=== PATIENT | male | born 1975 | race Caucasian/White ===

== ENCOUNTER 2020-06-22 17:37 | Emergency (ER) | payer OTHER, SELFPAY ==
--- NOTE | ~2020-06-22 | XR_ITS ---
EXAMINATION: XR ankle LT min 3V DATE: 06/22/2020 18:23 INDICATION: Left ankle pain and swelling TECHNIQUE: Anteroposterior, lateral, mortise, and additional oblique view of the ankle were obtained. COMPARISON: None. FINDINGS: Bone alignment is normal. There is no fracture. Ankle soft tissue swelling is noted. The an kle mortise is intact. IMPRESSION: 1. Ankle soft tissue swelling without acute osseous abnormality. Reviewed, dictated and finalized at location A. INSPECTOR
--- NOTE | ~2020-06-22 | XR_ITS ---
EXAMINATION: XR foot LT min 3V DATE: 06/22/2020 18:24 INDICATION: Left foot pain TECHNIQUE: Dorsoplantar, lateral, and 2 oblique views of the left foot were obtained. COMPARISON: None. FINDINGS: Bone alignment is normal. There is no fracture. There is lateral soft tissue swelling of an kle. The joint spaces are maintained. IMPRESSION: 1. Soft tissue swelling without acute osseous abnormality. Reviewed, dictated and finalized at location A. WORKERS
[2020-06-22 17:50] VITALS: BP 138/82; PULSE 85; RESP 16; TEMP 36.7; O2SAT 98
--- NOTE | 2020-06-22 18:00 | ED.LOWEXIN ---
HPI - Extremity Injury (Lower) General Chief Complaint: Extremity Injury, Lower Stated Complaint: Exremity Injury, Lower Time Seen by Provider: 06/22/20 18:00 Source: patient Mode of arrival: ambulatory Limitations: no limitations History of Present Illness HPI Narrative: Chris Meade is a 44 yo male with a PMH of opiate addiction (currently on Suboxone) who fell off a ladder on Tuesday dropped about 10 feet left ankle is currently swollen. He has been icing his ankle over the weekend; rates pain on ankle is 8 out of 10 Related Data Allergies Allergy/AdvReac Type Severity Reaction Status Date / Time codeine Allergy Unknown Unknown Verified 06/22/20 17:58 Review of Systems Review of Systems: Narrative: CONSTITUTIONAL: Denies fever, chills, sweats. EYES: Denies visual changes, redness, discharge. ENT: Denies rhinorrhea, congestion, sore throat, otalgia. CARDIOVASCULAR: Denies chest pain, palpitations, edema. RESPIRATORY: Denies dyspnea, wheezing, cough GASTROINTESTINAL: Denies abdominal pain, nausea, vomiting, diarrhea. GENITOURINARY: Denies dysuria, hematuria, abnormal discharge SKIN: Denies rash or itching. NEUROLOGIC: Denies numbness, or focal weakness. PSYCHIATRIC: Denies anxiety or depression. Left ankle pain and swelling PMFSH Past Medical History Medical History Opiate addiction Family History Family History Grandparent Family history of cardiovascular disease Family history of coronary artery disease Diabetes mellitus Other Family history of attention deficit hyperactivity disorder (ADHD) Social History Social History Smoking status: Current every day smoker Second hand tobacco smoke exposure: No Alcohol intake: never Substance use type: painkillers Comments At time of signature, I agree with nursing past medical, surgical, social and family history. There is no relevant family history pertinent to the presenting complaint. Exam Narrative: Exam Narrative: GENERAL: This is a well-nourished, well-developed patient, in mild distress. HEAD: normocephalic, atraumatic. EYES: PERRL. Sclera clear/white. Vision is grossly intact. EARS: External ears normal, auditory canals clear and without drainage, TMs normal without perforation. Hearing grossly intact. NOSE: External nose normal without nasal discharge, nares without redness, no rhinorrhea. THROAT: Mucous membranes moist, posterior pharynx NECK: Neck supple, non-tender CARDIOVASCULAR: Regular rate and rhythm without murmurs, gallops, or rubs. RESPIRATORY: Clear to auscultation. Breath sounds equal bilaterally. No wheezes, rales, or rhonchi. GASTROINTESTINAL: Abdomen soft, non-tender, SKIN: warm, intact with no suspicious lesions or rash, good texture and turgor. NEURO: awake, alert, and oriented to person, place and time. There were no obvious focal neurologic abnormalities. Steady gait EXTREMITIES: L ankle edema, lateral, above Achilles tendon, able to wiggle toes, 2+ pedal pulse, induration above heel BACK: Nontender without deformity Course Course Emergency Course: Patient fell off a 10 foot ladder on Tuesday has iced and elevated L ankle since then and still has pain and inability to put pressure on foot X-ray left ankle and left foot-left tissue swelling present but bone alignment normal ankle mortise is intact Given muscle relaxant and ankle Mu wrapped and patient placed on crutches; RICE to joint Follow-up with orthopedist if no improvement the next few days Vital Signs Vital signs: Vital Signs Temperature 98.1 F 06/22/20 17:50 Pulse Rate 85 06/22/20 17:50 Respiratory Rate 16 06/22/20 17:50 Blood Pressure 138/82 06/22/20 17:50 Pulse Oximetry 98 06/22/20 17:50 Temperature 98.1 F 06/22/20 17:50 Pulse Rate 85 06/22/20 17:50 Respiratory Rate 1
== END 2020-06-22 19:14 | disposition home or self-care (01) ==
PROVIDERS: Emergency Provider Nurse Practitioner
DX: S93.402A Sprain of unspecified ligament of left ankle, initial encounter (principal); S96.912A Strain of unspecified muscle and tendon at ankle and foot level, left foot, initial encounter; W11.XXXA Fall on and from ladder, initial encounter; F17.200 Nicotine dependence, unspecified, uncomplicated
CPT/HCPCS: 73610; 73630; 99213; G0463

== ENCOUNTER 2021-03-19 16:18 | Emergency (ER) | payer OTHER, SELFPAY ==
[2021-03-19 16:24] VITALS: BP 147/87; PULSE 80; RESP 16; TEMP 37.3; O2SAT 100
[2021-03-19 16:41] VITALS: BP 147/87; PULSE 80; RESP 16; TEMP 37.3; O2SAT 100
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
== END 2021-03-19 17:04 | disposition home or self-care (01) ==
PROVIDERS: Emergency Provider Nurse Practitioner
DX: F11.23 Opioid dependence with withdrawal (principal); F17.200 Nicotine dependence, unspecified, uncomplicated
CPT/HCPCS: 99213; G0463

== ENCOUNTER 2021-03-24 15:50 | Emergency (ER) | payer OTHER, SELFPAY ==
[2021-03-24 16:02] VITALS: BP 114/76; PULSE 102; RESP 16; TEMP 36.7; O2SAT 99
--- NOTE | 2021-03-24 16:43 | ED.GENADULT ---
HPI - General Adult General Chief complaint: Unspecified Stated complaint: needs refill of meds till he can get to dr Time Seen by Provider: 03/24/21 16:45 Source: patient, RN notes reviewed and old records reviewed Mode of arrival: ambulatory Limitations: no limitations History of Present Illness HPI narrative: 45-year-old male presents to [facility] with complaints of needing Gabapentin medication refilled till he can get to his doctors appointment. Patient states that he is off of Suboxone now for 10 days and needs refill on the Gabapentin till he can see his new doctor on April 04. Patient reports that he takes the Gabapentin for chronic neck, right arm pain and back pain. Patient had prior history of opiate dependency but has been doing well was on Suboxone for 3 years but can longer afford it and has weaned himself off with last dose 10 days ago, denies any relapse. complaint: needs medication refill Onset (ago): day(s) (1) Related Data Home Medications Medication Instructions Recorded Confirmed gabapentin 600 mg PO TID 03/24/21 03/24/21 Allergies Allergy/AdvReac Type Severity Reaction Status Date / Time codeine Allergy Unknown Unknown Verified 03/24/21 16:10 Review of Systems Review of Systems: CONSTITUTIONAL: Denies fever, chills, or sweats. EYES: Denies visual changes, redness, or discharge. ENT: Denies rhinorrhea, congestion, sore throat, or otalgia. CARDIOVASCULAR: Denies chest pain, palpitations, or edema. RESPIRATORY: Denies cough or dyspnea. GASTROINTESTINAL: Denies abdominal pain, nausea, vomiting, or diarrhea. GENITOURINARY: Denies dysuria or hematuria. SKIN: Denies rash or itching. MUSCULOSKELETAL: Chronic lower back pain and neck pain and right arm pain. joint pain, or myalgia. NEUROLOGIC: Denies headache, numbness, or weakness. PSYCHIATRIC: Denies anxiety or depression. All systems reviewed & are unremarkable except as noted in HPI and below PMFSH Past Medical History Medical History (Updated 03/28/21 @ 16:10 by Avis Mallory NP) Lumbar back sprain and fracture 2009 Opiate addiction Surgical History Surgical History (Updated 03/28/21 @ 16:12 by Avis Mallory NP) H/O wrist surgery right History of knee surgery right knee History of shoulder surgery right Family History Family History Grandparent Family history of cardiovascular disease Family history of coronary artery disease Diabetes mellitus Other Family history of attention deficit hyperactivity disorder (ADHD) Social History Social History Smoking status: Current every day smoker Second hand tobacco smoke exposure: No Alcohol intake: never Substance use type: painkillers Comments At time of signature, agree with nursing past medical, surgical, social and family history. There is no relevant family history pertinent to the presenting complaint Exam Narrative: GENERAL: Well-appearing, well-nourished, and in no acute distress. HEAD: Normocephalic, atraumatic. EYES: PERRLA and EOMI. ENT: Nares clear, no rhinorrhea or epistaxis. Mucous membranes moist. NECK: Supple.no lymphadenopathy CHEST: Clear to auscultation. No respiratory distress.SAO2 99% on room air HEART: Regular rate and rhythm. No murmur heard. Normal peripheral pulses. ABDOMEN: Soft, nontender, nondistended, normal active bowel sounds. EXTREMITIES: Normal range of motion. No edema history of chronic back and neck pain and right arm pain. SKIN: Warm, dry, no rash. NEURO: No focal deficits. Alert and oriented x3. Course Vital Signs Vital signs: Vital Signs Temperature 36.7 C 03/24/21 16:02 Pulse Rate 102 H 03/24/21 16:02 Respiratory Rate 16 03/24/21 16:02 Blood Pressure 114/76 03/24/21 16:02 Pulse Oximetry 99 03/24/21 16:02 Temperature 36.7 C 03/24/21 16:02 Pulse Rate 102 H 03/24/21 16:02 Re
== END 2021-03-24 17:05 | disposition home or self-care (01) ==
PROVIDERS: Emergency Provider Registered Nurse
DX: Z76.0 Encounter for issue of repeat prescription (principal); F17.200 Nicotine dependence, unspecified, uncomplicated
CPT/HCPCS: 99211; G0463

== ENCOUNTER 2021-06-26 12:48 | Emergency (ER) | payer OTHER, SELFPAY ==
--- NOTE | 2021-06-26 12:52 | ED.ANXIETY ---
HPI - Anxiety General Chief Complaint: Unspecified Stated Complaint: nerves and anxiety flare up Time Seen by Provider: 06/26/21 12:53 Source: patient and RN notes reviewed History of Present Illness HPI narrative: Patient is a 45-year-old male who presents the urgent care with complaints of increased anxiety and nerve pain. Patient states that he typically takes gabapentin 600 mg 3 times a day however he has been out of his medications. It was noted in patient's pharmacy that he failed gabapentin in March for 45 tablets. Patient states that he has had increased anxiety since he has been out considering he had to bury his a week ago . Patient also reports of chronic rotator cuff pain and right wrist pain due to injuries. Patient does appear anxious otherwise no acute distress noted. No other acute complaints. Patient aware of the plan of care Some parts of this dictation were generated by voice recognition software and may contain typographical and/or grammatical inaccuracies. Related Data Allergies Allergy/AdvReac Type Severity Reaction Status Date / Time codeine Allergy Unknown Unknown Verified 06/26/21 12:56 Review of Systems Review of Systems: CONSTITUTIONAL: Denies fever, chills, or sweats. EYES: Denies visual changes, redness, or discharge. ENT: Denies rhinorrhea, congestion, sore throat, or otalgia. CARDIOVASCULAR: Denies chest pain, palpitations, or edema. RESPIRATORY: Denies cough or dyspnea. GASTROINTESTINAL: Denies abdominal pain, nausea, vomiting, or diarrhea. GENITOURINARY: Denies dysuria or hematuria. SKIN: Denies rash or itching. MUSCULOSKELETAL: Denies back pain, joint pain, or myalgia. NEUROLOGIC: Denies headache, numbness, or weakness. PSYCHIATRIC: Reports of anxiety All other systems reviewed are negative, except as documented in HPI. [facility] Past Medical History Medical History (Updated 06/26/21 @ 13:06 by MARIANO Cronin) Lumbar back sprain and fracture 2009 Opiate addiction Surgical History Surgical History (Updated 03/28/21 @ 16:12 by Avis Mallory NP) H/O wrist surgery right History of knee surgery right knee History of shoulder surgery right Family History Family History Grandparent Family history of cardiovascular disease Family history of coronary artery disease Diabetes mellitus Other Family history of attention deficit hyperactivity disorder (ADHD) Social History Social History Smoking status: Current every day smoker Second hand tobacco smoke exposure: No Alcohol intake: never Substance use type: painkillers Comments At the time of my signature, I reviewed and agree with the nursing past medical, surgical, social, and family history. There is no relevant family history pertinent to the patient complaint. Exam Narrative: GENERAL: This is a well-nourished, well-developed patient, in no apparent distress. HEAD: normocephalic, atraumatic. EYES: PERRL. Sclera clear/white. Vision is grossly intact. EARS: External ears normal NOSE: External nose normal with no obvious nasal discharge, nares without redness, no rhinorrhea. THROAT: Mucous membranes moist, posterior pharynx clear. NECK: Neck supple, CARDIOVASCULAR: Regular rate and rhythm without murmurs, gallops, or rubs. RESPIRATORY: Clear to auscultation. Breath sounds equal bilaterally. No wheezes, rales, or rhonchi. SKIN: warm, intact with no suspicious lesions or rash, good texture and turgor. NEURO: awake, alert, and oriented to person, place and time. There were no obvious focal neurologic abnormalities. EXTREMITIES: No clubbing, cyanosis, or edema. Course Vital Signs Vital signs: Vital Signs Temperature 98.6 F 06/26/21 12:53 Pulse Rate 112 H 06/26/21 12:53 Respiratory Rate 16 06/26/21 12:53 Blood Pressure 141/89 H 06/26/21 12:53 Pulse Oximetry 100 06/26/21 1
[2021-06-26 12:53] VITALS: BP 141/89; PULSE 112; RESP 16; TEMP 37; O2SAT 100
== END 2021-06-26 13:09 | disposition home or self-care (01) ==
PROVIDERS: Emergency Provider Nurse Practitioner Family
DX: Z76.0 Encounter for issue of repeat prescription (principal); F17.200 Nicotine dependence, unspecified, uncomplicated
CPT/HCPCS: 99211; G0463

== ENCOUNTER 2023-02-17 09:41 | Emergency (ER) | payer OTHER, SELFPAY ==
[2023-02-17 09:52] VITALS: BP 137/92; PULSE 88; RESP 16; TEMP 36.7; O2SAT 99
--- NOTE | 2023-02-17 10:01 | ED.DENTAL ---
HPI - Dental/Oral General Chief complaint: Dental/Oral Stated complaint: Toothache Time Seen by Provider: 02/17/23 10:01 Source: patient, RN notes reviewed and old records reviewed Mode of arrival: ambulatory Limitations: no limitations History of Present Illness HPI Narrative: 47-year-old male presents to the [facility] with complaints of dental pain and facial swelling that started yesterday. Very poor dentition in general. No erythema to the face MD Complaint: tooth pain Related Data Allergies Allergy/AdvReac Type Severity Reaction Status Date / Time codeine Allergy Unknown Unknown Verified 06/26/21 12:56 Review of Systems Review of Systems: All systems reviewed & are unremarkable except as noted in HPI and below Constitutional: Constitutional: Reports no additional constitutional complaints Eyes: Eyes: Reports no additional eye complaints ENT: Reports as per HPI, Reports dental pain, Denies hoarseness and Denies lip swelling Cardiovascular: Cardiovascular: Reports no additional cardiovascular complaints, Denies chest pain and Denies dyspnea Respiratory: Respiratory: Reports no additional respiratory complaints, Denies chest congestion, Denies cough and Denies dyspnea Gastrointestinal: Gastrointestinal: Reports no additional gastrointestinal complaints, Denies abdominal pain, Denies nausea and Denies vomiting Musculoskeletal: Musculoskeletal: Reports no additional musculoskeletal complaints Integumentary/Breasts: Skin/Breast: Reports system reviewed and no additional complaints, except as docu Neurologic: Reports system reviewed and no additional complaints, except as documented Psychiatric: Psychiatric: Reports no additional psychiatric complaints Allergic/Immunologic: Allergic/Immunologic: Reports no additional allergic/immunologic complaints [facility] Past Medical History Medical History Lumbar back sprain and fracture 2009 Opiate addiction Surgical History Surgical History H/O wrist surgery right History of knee surgery right knee History of shoulder surgery right Family History Family History Grandparent Family history of cardiovascular disease Family history of coronary artery disease Diabetes mellitus Other Family history of attention deficit hyperactivity disorder (ADHD) Social History Social History Smoking status: Current every day smoker Second hand tobacco smoke exposure: No Alcohol intake: never Substance use type: painkillers Comments At the time of my signature, I reviewed and agree with the nursing past medical, surgical, social, and family history. There is no relevant family history pertinent to the patient complaint. Exam Const: General: cooperative, healthy appearing, comfortable, no acute distress, well developed, alert and well nourished Nutritional Appearance: well nourished Orientation/consciousness: patient oriented x3 Limitations: no limitations HENMT: Head: normal to inspection Ears: hearing grossly normal bilaterally, external ears normal, TM's normal bilaterally and EAC's normal Face/Nose/Sinus: Normal external nose present, Normal nares present, Normal nasal mucous membranes and turbinates present and normal facial exam Face and sinus: normal facial exam Mouth: Yes Normal oral and palatal mucosa present, Yes lip normal and Yes moist mucous membranes Teeth and gingiva: abnormal tooth and associated gingiva (Left upper and lower gingiva erythema, swelling as well as multiple molars ), caries, gingiva abnormal and poor dentition Throat: posterior oropharynx normal and uvula midline Eyes: General: appearance normal, both eyes and all related structures Alignment and Position: alignment normal Periorbital: periorbital findings normal Pup
== END 2023-02-17 10:17 | disposition home or self-care (01) ==
PROVIDERS: Emergency Provider Nurse Practitioner
DX: K04.7 Periapical abscess without sinus (principal); F17.200 Nicotine dependence, unspecified, uncomplicated
CPT/HCPCS: 99213; G0463

== ENCOUNTER 2024-02-02 14:50 | Emergency (ER) | payer OTHER, SELFPAY ==
[2024-02-02 15:02] VITALS: BP 152/98; PULSE 100; RESP 20; TEMP 36.3; O2SAT 99
--- NOTE | 2024-02-02 15:37 | ED.SKABFB ---
HPI - Skin/Abscess/Foreign Bdy General Chief complaint: Skin/Abscess/Foreign Body Stated complaint: Suture Removed History of Present Illness HPI narrative: patient is a 48-year-old male, presents to [facility] for staple removal from the left scalp, following an injury he sustained 3 weeks ago with subsequent staple placement. He reports the wound has been well healed but he was unable to make it in to have his robbi removed before today secondary to scheduling conflicts. He denies any additional complaints today. Related Data Allergies Allergy/AdvReac Type Severity Reaction Status Date / Time codeine Allergy Unknown Unknown Verified 06/26/21 12:56 Review of Systems Integumentary/Breasts: Comments: Refer HPI [facility] Past Medical History Medical History Lumbar back sprain and fracture 2009 Opiate addiction Surgical History Surgical History H/O wrist surgery right History of knee surgery right knee History of shoulder surgery right Family History Family History Grandparent Family history of cardiovascular disease Family history of coronary artery disease Diabetes mellitus Other Family history of attention deficit hyperactivity disorder (ADHD) Social History Social History Smoking status: Current every day smoker Second hand tobacco smoke exposure: No Alcohol intake: never Substance use type: painkillers Exam Const: General: cooperative, healthy appearing and comfortable Nutritional Appearance: average body habitus Orientation/consciousness: oriented to person Limitations: no limitations HENMT: Head: other ( patient has 5 [place] placed to the left occipital scalp. Well-healed. ) Mouth: Yes Normal oral and palatal mucosa present Chest: Chest palpation & inspection: normal inspection of the chest and normal palpation of entire chest wall Resp: Effort & Inspection: normal respiratory effort Auscultation: clear to auscultation bilaterally Cardio: Rate: regular rate Rhythm: regular rhythm Heart sounds: S1 normal heart sound present and S2 normal heart sound present Skin: General skin exam: normal color Lesions: no lesions Rashes: no rashes Neuro: General: oriented to person, oriented to place, oriented to time and patient oriented x3 Cranial nerves: Yes CN's II-XII intact bilaterally Course Course Emergency Course: 5 [place] removed, patient tolerated well Level of Care: Express Care Visit ([id number]) Vital Signs Vital signs: Vital Signs Temperature 36.3 C L 02/02/24 15:02 Pulse Rate 100 02/02/24 15:02 Respiratory Rate 20 02/02/24 15:02 Blood Pressure 152/98 H 02/02/24 15:02 Pulse Oximetry 99 02/02/24 15:02 Oxygen Delivery Room Air 02/02/24 15:02 Temperature 36.3 C L 02/02/24 15:02 Pulse Rate 100 02/02/24 15:02 Respiratory Rate 20 02/02/24 15:02 Blood Pressure 152/98 H 02/02/24 15:02 Pulse Oximetry 99 02/02/24 15:02 Oxygen Delivery Room Air 02/02/24 15:02 Procedures Other Procedure Procedure 1: Other Procedure: staple removal complete, 5 robbi removed intact, no bleeding or drainage following MDM - Skin/Abscess/Foreign Bdy Differential Diagnosis Differential diagnosis: Likely other ( staple removal) Discharge Plan Discharge Clinical Impression: Encounter for staple removal Patient Disposition: Home, Self-Care Condition: Stable Instructions: Antibiotic Form Additional Instructions: keep wound clean and dry, it appears well healed however the puncture sites were robbi removed sometimes ooze slightly. Follow-up with your primary care provider with any further concerns Follow-up/Referrals: PHYSICIAN,BEAD SUPERVISOR [Primary Care Provider] - Time of Disposition: 15:43
== END 2024-02-02 15:50 | disposition home or self-care (01) ==
PROVIDERS: Emergency Provider Nurse Practitioner Family
DX: S01.01XD Laceration without foreign body of scalp, subsequent encounter (principal); X58.XXXD Exposure to other specified factors, subsequent encounter; F17.200 Nicotine dependence, unspecified, uncomplicated
CPT/HCPCS: 99211; G0463

== ENCOUNTER 2024-03-08 14:24 | Emergency (ER) | payer OTHER, SELFPAY ==
[2024-03-08 14:40] VITALS: BP 144/81; PULSE 76; RESP 20; TEMP 36.7; O2SAT 100
--- NOTE | 2024-03-08 15:42 | ED.GENADULT ---
HPI - General Adult General Chief complaint: Skin/Abscess/Foreign Body Stated complaint: stung by wasps/swelling Time Seen by Provider: 03/08/24 15:45 Source: patient, RN notes reviewed and old records reviewed Mode of arrival: ambulatory Limitations: no limitations History of Present Illness HPI narrative: 48-year-old male presents to the [facility] with multiple scabs to his wrists and forearms. Reports that it is all over his body. Has been sleeping in a shed. Areas are scabbed over, no signs of cellulitis. Most consistent with scabies or mites States has been going on for several days Related Data Home Medications Medication Instructions Recorded Confirmed buprenorphine 8 mg-naloxone 2 mg 1 film sublingual TID 03/08/24 03/08/24 sublingual film Allergies Allergy/AdvReac Type Severity Reaction Status Date / Time codeine Allergy Unknown Unknown Verified 03/08/24 14:54 Review of Systems Review of Systems: All systems reviewed & are unremarkable except as noted in HPI and below Constitutional: Constitutional: Reports no additional constitutional complaints Eyes: Eyes: Reports no additional eye complaints ENT: Reports system reviewed and no additional complaints, except as documented Cardiovascular: Cardiovascular: Reports no additional cardiovascular complaints, Denies chest pain and Denies dyspnea Respiratory: Respiratory: Reports no additional respiratory complaints, Denies chest congestion, Denies cough and Denies dyspnea Gastrointestinal: Gastrointestinal: Reports no additional gastrointestinal complaints, Denies abdominal pain, Denies nausea and Denies vomiting Musculoskeletal: Musculoskeletal: Reports no additional musculoskeletal complaints Integumentary/Breasts: Skin/Breast: Reports as per HPI Neurologic: Reports system reviewed and no additional complaints, except as documented Psychiatric: Psychiatric: Reports no additional psychiatric complaints Allergic/Immunologic: Allergic/Immunologic: Reports no additional allergic/immunologic complaints [facility] Past Medical History Medical History Lumbar back sprain and fracture 2009 Opiate addiction Surgical History Surgical History H/O wrist surgery right History of knee surgery right knee History of shoulder surgery right Family History Family History Grandparent Family history of cardiovascular disease Family history of coronary artery disease Diabetes mellitus Other Family history of attention deficit hyperactivity disorder (ADHD) Social History Social History Smoking status: Current every day smoker Second hand tobacco smoke exposure: No Alcohol intake: never Substance use type: painkillers Comments At the time of my signature, I reviewed and agree with the nursing past medical, surgical, social, and family history. There is no relevant family history pertinent to the patient complaint. Exam Const: General: cooperative, healthy appearing, comfortable, no acute distress, well developed, alert and well nourished Nutritional Appearance: well nourished Orientation/consciousness: patient oriented x3 Limitations: no limitations HENMT: Head: normal to inspection Ears: hearing grossly normal bilaterally and external ears normal Face/Nose/Sinus: Normal external nose present, Normal nares present, Normal nasal mucous membranes and turbinates present, normal facial exam and face symmetric Face and sinus: normal facial exam and face symmetric Eyes: General: appearance normal, both eyes and all related structures Alignment and Position: alignment normal Periorbital: periorbital findings normal Neck: Neck: normal visual inspection, full ROM, no lymphadenopathy and no meningeal signs Chest: Chest palpation
== END 2024-03-08 15:50 | disposition home or self-care (01) ==
PROVIDERS: Emergency Provider Nurse Practitioner
DX: B88.9 Infestation, unspecified (principal); F17.200 Nicotine dependence, unspecified, uncomplicated
CPT/HCPCS: 99213; G0463

== ENCOUNTER 2025-01-02 11:29 | Emergency (ER) | payer OTHER, SELFPAY ==
[2025-01-02 11:33] VITALS: BP 118/68; PULSE 86; RESP 18; TEMP 36.8; O2SAT 100
--- NOTE | 2025-01-02 11:38 | ED.SKABFB ---
HPI - Skin/Abscess/Foreign Bdy General Chief complaint: Skin/Abscess/Foreign Body Stated complaint: poison Kary Time Seen by Provider: 01/02/25 11:38 Source: patient Mode of arrival: ambulatory Limitations: no limitations History of Present Illness HPI narrative: 49 yo M presents with poison kary rash for 1 wk. Reports spread all over his entire body. hx of similar allergic reaction. All systems reviewed and negative except as noted above. Related Data Allergies Allergy/AdvReac Type Severity Reaction Status Date / Time codeine Allergy Unknown Unknown Verified 01/02/25 11:38 Review of Systems Review of Systems: CONSTITUTIONAL: Denies fever, chills, or sweats. EYES: Denies visual changes, redness, or discharge. ENT: Denies rhinorrhea, congestion, sore throat, or otalgia. CARDIOVASCULAR: Denies chest pain, palpitations, or edema. RESPIRATORY: Denies cough or dyspnea. GASTROINTESTINAL: Denies abdominal pain, nausea, vomiting, or diarrhea. GENITOURINARY: Denies dysuria or hematuria. SKIN: reports poison kary rash with itching MUSCULOSKELETAL: Denies back pain, joint pain, or myalgia. NEUROLOGIC: Denies headache, numbness, or weakness. PSYCHIATRIC: Denies anxiety or depression. All other systems reviewed are negative, except as documented in HPI. [facility] Past Medical History Medical History Lumbar back sprain and fracture 2009 Opiate addiction Surgical History Surgical History H/O wrist surgery right History of knee surgery right knee History of shoulder surgery right Family History Family History Grandparent Family history of cardiovascular disease Family history of coronary artery disease Diabetes mellitus Other Family history of attention deficit hyperactivity disorder (ADHD) Social History Social History Smoking status: Current every day smoker Second hand tobacco smoke exposure: No Alcohol intake: never Substance use type: painkillers Comments At time of signature, agree with nursing past medical, surgical, social and family history. There is no relevant family history pertinent to the presenting complaint. Exam Narrative: GENERAL: This is a well-nourished, well-developed patient, in no apparent distress. HEAD: normocephalic, atraumatic. EYES: PERRL. Sclera clear/white. Vision is grossly intact. EARS: External ears normal NOSE: External nose normal NECK: Neck supple, non-tender without lymphadenopathy, masses or thyromegaly. CARDIOVASCULAR: Regular rate and rhythm without murmurs, gallops, or rubs. RESPIRATORY: Clear to auscultation. Breath sounds equal bilaterally. No wheezes, rales, or rhonchi. SKIN: warm, Dry, intact , good texture and turgor. erythematous vesicular scabbed poison kary rash from head to toe. erythema and swelling with warmth to bilateral forearms concerning for cellulitis. Also erythematous pustule lesions to back of neck concerning for infection. NEURO: awake, alert, and oriented to person, place and time. There were no obvious focal neurologic abnormalities. EXTREMITIES: No joint tenderness, effusion, or edema noted. Course Course Level of Care: [facility] Visit Vital Signs Vital signs: Vital Signs Temperature 36.8 C 01/02/25 11:33 Pulse Rate 86 01/02/25 11:33 Respiratory Rate 18 01/02/25 11:33 Blood Pressure 118/68 01/02/25 11:33 Pulse Oximetry 100 01/02/25 11:33 Oxygen Delivery Room Air 01/02/25 11:33 Temperature 36.8 C 01/02/25 11:33 Pulse Rate 86 01/02/25 11:33 Respiratory Rate 18 01/02/25 11:33 Blood Pressure 118/68 01/02/25 11:33 Pulse Oximetry 100 01/02/25 11:33 Oxygen Delivery Room Air 01/02/25 11:33 reviewed MDM - Skin/Abscess/Foreign Bdy MDM Narrative Medical decision making narrative: pt given solumedrol IM at [facility] due to severity of rash. Will treat with prednisone taper and cephalexin. Pt alert, nontoxic. Differential Diagnosis Differential diagnosis: Likely abscess of skin or subcutaneous tissue, urticaria, cellulitis, impetigo and contact dermatitis Discharge Plan Discharge Clinical Impression: Dermatitis due to plants, including poison kary, sumac, and oak, Cellulitis Patient Disposition: Home Condition: Stable Instructions: Antibiotic Form Additional Instructions: start oral prednisone tomorrow morning. Take hydroxyzine as prescribed To treat itching. This medication may cause drowsiness. Do not take while driving. Apply steroid cream sparingly to affected area 2 to 3 times a day. Follow-up with your doctor if symptoms are not improving. Patient Language: Georgian Prescriptions: New prednisone 10 mg tablet See Rx Instructions .ROUTE .COMPLEX Qty: 42 0RF Rx Instructions: Take 6 tablets for 2 days Take 5 tablets for 2 days Take 4 tablets for 2 days Take 3 tablets for 2 days Take 2 tablets for 2 days Take 1 tablet for 2 days triamcinolone acetonide 0.1 % cream 1 applic topical BID Qty: 30 0RF cephalexin 500 mg capsule 500 mg PO QID 10 Days Qty: 40 0RF hydroxyzine HCl 25 mg tablet 25 mg PO Q6-8H PRN (Reason: itching) Qty: 30 0RF Follow-up/Referrals: PHYSICIAN,SHELL [employer] MACHINE OPERATOR [Primary Care Provider] - Time of Disposition: 12:08
[2025-01-02] MEDS: methylPREDNISolone SOD SUCC 125 MG VIAL IM (11:52)
== END 2025-01-02 12:12 | disposition home or self-care (01) ==
PROVIDERS: Emergency Provider Nurse Practitioner Family
DX: L25.5 Unspecified contact dermatitis due to plants, except food (principal); L03.114 Cellulitis of left upper limb; L03.113 Cellulitis of right upper limb; F17.200 Nicotine dependence, unspecified, uncomplicated
CPT/HCPCS: 96372; 99213; G0463; J2919